=== PATIENT | male | born 1945 | race Caucasian/White ===

== ENCOUNTER 2019-02-17 10:09 | Inpatient (IN) ==
[2019-02-17] MEDS ORDERED: ASPIRIN PO ONE (10:15)
[2019-02-17 10:38] LABS: OCCULT BLOOD 1 POSITIVE (NEGATIVE)
[2019-02-17 11:20] LABS: BASO# 0.04 X1000 (0.0-0.2); BASO% 0.4 % (0.0-0.8); EOS# 0.12 X1000 (0.0-0.7); EOS% 1.2 % (0.0-10.0); HEMATOCRIT 18.2 % (42.0-52.0); IMM GRAN# 0.01 X1000 (0.0-0.04); IMM GRAN% 0.1 % (0.0-0.5); LYMPH# 3.95 X1000 (1.2-3.4); LYMPH% 38.2 % (20.5-51.1); MCH 17.1 PG (27-31); MCHC 26.9 g/dL (33-37); MCV 63.6 FL (81-99); MONO% 7.7 % (1.7-9.3); MPV 8.4 FL (7.4-10.4); NEUT# 5.43 X1000 (1.4-6.5); NEUT% 52.4 % (42.2-75.2); PLT 499 X1000 (130-400); RBC 2.86 XMIL (4.7-6.1); WBC 10.35 X1000 (4.8-10.8)
[2019-02-17 11:22] LABS: HEMOGLOBIN 4.9 g/dL (14.0-18.0)
--- NOTE | 2019-02-17 11:22 | EKG Report ---
Test Performed on : 02/17/2019 10:14:32 AM Test Reason : cp Blood Pressure : / mmHG Vent. Rate : 101 BPM Atrial Rate : 101 BPM P-R Int : 150 ms QRS Dur : 092 ms QT Int : 360 ms P-R-T Axes : 077 059 070 degrees QTc Int : 466 ms Sinus tachycardia. Left ventricular hypertrophy with repolarization abnormality Cannot rule out Septal infarct (cited on or before 07-MAR-2018) Abnormal ECG When compared with ECG of 08-MAR-2018 01:45, Vent. rate has increased BY [address] now depressed in Lateral leads T wave inversion now evident in Lateral leads Confirmed by Emily EM, Connor ([id number]), international editorial producer Charleen Gabriel ([id number]) on 02/22/2019 1:54:53 PM
--- NOTE | 2019-02-17 11:30 | Diag Imaging Result Doc PS360 ---
EXAM: CHEST-2 VIEWS HISTORY: cp TECHNIQUE: Chest two views COMPARISON: 03/07/2018 FINDINGS: The lungs are hyperexpanded. The heart is not enlarged. The vessels are small there are no infiltrates. No pleural effusions. IMPRESSION: Emphysema2) Electronically signed by Juan Bhandari 02/17/2019 11:28 AM
[2019-02-17] MEDS ORDERED: ZOFRAN IV PRN (11:38)
[2019-02-17] MEDS ORDERED: DIOVAN PO SCH (11:38)
[2019-02-17] MEDS ORDERED: PROTONIX 80 MG in NS 80 ML IV ONE (11:38)
[2019-02-17 11:41] LABS: AGAP 13; ALBUMIN 4.3 g/dL (3.5-5.0); ALKALINE PHOSPHATASE 54 U/L (32-122); BUN 14 mg/dL (8-22); CALCIUM 8.6 mg/dL (8.8-10.2); CHLORIDE 105 mmol/L (98-107); CK PROFILE 51 U/L (24-204); COSMO 278; CREATININE 0.8 mg/dL (0.7-1.2); ESTIMATED GFR > 60; GLUCOSE 105 mg/dL (70-104); GOT 22 U/L (10-34); GPT 9 U/L (10-44); POTASSIUM 3.8 mmol/L (3.5-5.1); SODIUM 139 mmol/L (136-145); TCO2 21 mmol/L (25-35); TOTAL PROTEIN 7.3 g/dL (6.3-8.3)
[2019-02-17 11:50] LABS: INR 1.23; PROTIME 16.1 Seconds (11.0-16.0)
[2019-02-17 11:51] LABS: PTT 36.4 Seconds (22.3-41.8)
[2019-02-17] MEDS: NS 1,000 ML IV SCH (11:55)
[2019-02-17] MEDS ORDERED: PROTONIX 80 MG in NS 80 ML IV SCH (12:00)
--- NOTE | 2019-02-17 12:12 | PROVIDER DOCUMENTATION ---
This chart was entered by Naima Mejia Scribe, acting as scribe for Connor Diaz MD. HPI-Cardiac General - General Chief Complaint: Palpitations Stated Complaint: HEART SKIPPING/HEART PT Time Seen by Provider: 02/17/19 10:20 Source: patient Allergies/Adverse Reactions: Patient Allergies Allergy/AdvReac Type Severity Reaction Status Date / Time Penicillins Allergy Intermediate SWELLING Verified 02/17/19 10:17 Home Medications: Home Medication List Medication Instructions Recorded Confirmed Last Taken Type Albuterol 2.5MG/Ipratrop 0.5MG 3 ml INH [id number] 03/28/13 03/07/18 03/31/13 21:20 History [Duoneb (A & A)] Simvastatin 40 mg PO QHS 03/28/13 03/07/18 03/06/18 History Acetaminophen with Codeine 1 each PO Q6H PRN PRN #20 tablet 01/13/16 03/07/18 03/07/18 06:00 Rx [Tylenol with Codeine #3 Tablet] Ranitidine HCl [Zantac] 150 mg PO DAILY 03/07/18 03/07/18 Unknown History Diltiazem C.d. [Cardizem Cd] 120 mg PO DAILY #30 capsule 03/08/18 Unknown Rx Rivaroxaban [Xarelto] 20 mg PO WSUPPER #30 tablet 03/08/18 Unknown Rx Valsartan [Diovan] 320 mg PO DAILY #30 tablet 03/08/18 Unknown Rx - History of Present Illness-Cardiac Nature of Presenting Problem: 74 y/o male presents to ED with worsening lightheadedness, weakness, palpitations, headache, SOB, and extremity pain onset 3 days ago. Pt reports he is on Xarelto. Pt denies chest pain. Pt is alert and oriented. Quality of Pain: reports: aching Severity in ED: mild Onset/Duration: 3 days ago Timing: still present, getting worse Context/Activities at Onset: reports: none Modifying Factors: improves with: nothing Palpitation Quality: missing beats History of arrythmia: reports: A-Fib Recent use of:: reports: no stimulants Nitro Today/Relief: reports: no nitro taken today Aspirin Treatment Today: reports: 325 mg x 1, provided by ED Prior Chest Pain/Cardiac Workup: reports: no prior chest pain, no prior cardiac workup (only for a-fib) Associated Symptoms: reports: headache, shortness of breath, weakness Similar Symptoms Previously?: No Recently Seen Here or By Another Healthcare Provider: No Review of Systems - Adult - REVIEW OF SYSTEMS - ADULT Constitutional: denies: chills, fever Eyes: reports: no symptoms reported Ears, Nose, Mouth & Throat: reports: no symptoms reported Cardiovascular: reports: palpitations. denies: chest pain Respiratory: reports: shortness of breath. denies: cough Gastrointestinal: denies: abdominal pain, diarrhea, nausea, vomiting Genitourinary: reports: no symptoms reported Musculoskeletal: reports: other (extremity pain). denies: back pain, joint pain Integumentary: reports: no symptoms reported Neurological: reports: headache/migraines, other (lightheaded, weakness). denies: dizziness/vertigo, seizure Psychiatric: reports: no symptoms reported Endocrine: reports: no symptoms reported Hematologic/Lymphatic: reports: no symptoms reported Allergic/Immunologic: reports: no symptoms reported All Other Systems: Reviewed and Negative Past History - Adult - PAST MEDICAL HISTORY-ADULT Review of Records: reports: Old Records Reviewed, Nursing Assessment Review, Med ications Reviewed Major Childhood Illnesses: reports: denies history Cardiovascular: reports: A-Fib, HTN, hyperlipidemia Respiratory: reports: COPD Gastrointestinal: reports: denies history Obstetrical/Gynecological: reports: denies history Genitourinary: reports: denies history Musculoskeletal: reports: denies history Neurological: reports: denies history Endocrine/Immune: reports: denies history Other Conditions: reports: denies history - PRIOR SURGERIES/PROCEDURES Surgical/Procedure History: reports: bowel surgery (colon resection), back/neck, other (leg vein) - IMMUNIZATION STATUS Childhood Immunizations: See Nurse Assessment Flu Vaccine: See Nurse Assessment - FAMILY HISTORY Family History: reviewed, not pertinent - SOCIAL HISTORY Smoking: quit greater than 1 year Substance Use: none/never Alcohol Use Frequency: never Living Situation: family Physical Exam-General - PHYSICAL EXAM-ADULT Initial Vital Signs Reviewed: Yes - CONSTITUTIONAL General Appearance: appears well, alert, no apparent distress - EYES Eyes: PERRL/EOMI, pale conjunctivae - HEAD, EARS, NOSE, MOUTH & THROAT HENMT: normocephalic/atraumatic, moist mucous membranes, normal ENT inspection - NECK Neck: non-tender, full range of motion - RESPIRATORY Respiratory: chest non-tender, normal breath sounds, rhonchi - CARDIOVASCULAR Cardiovascular: normal peripheral pulses, regular rate, rhythm - GASTROINTESTINAL (ABDOMEN) Abdominal Exam: normal bowel sounds, non tender, soft - GENITOURINARY Rectal Exam: normal exam, normal rectal tone Hemoccult Exam: heme positive stool - MUSCULOSKELETAL Back Exam: normal inspection, no CVA tenderness Extremity: normal range of motion, non-tender, normal gait - SKIN Integumentary: warm/dry, pallor - NEUROLOGIC Neurologic: purchasing specialist II-XII nml as tested, grossly normal, no motor/sensory deficits - PSYCHIATRIC Psych/Mental Status: normal mood/affect, normal thought content, normal thought process - HEART Score HEART Score: History: Slightly Suspicious HEART Score: ECG: Non-Specific Repolarization Disturbance/LBBB/PM HEART Score: Age: > or = 65 Years HEART Score: Risk Factors for Atherosclerotic Disease: 1 or 2 Risk Factors HEART Score: Troponin: < or = Normal Limit Total HEART Score:: 4 Progress - PLAN OF CARE/RESULTS Progress/Plan/Lab Results: Vital Signs - 8 hr 02/17/19 10:11 02/17/19 11:31 Temperature 97.3 F L Pulse Rate 110 H 72 Respiratory Rate 20 18 Blood Pressure 187/78 166/82 O2 Sat by Pulse Oximetry 95 98 Laboratory Results - last 24 hr 02/17/19 02/17/19 10:34 10:40 WBC 10.35 RBC 2.86 L Hgb 4.9 L* Hct 18.2 L MCV 63.6 L MCH 17.1 L MCHC 26.9 L RDW Std Deviation 19.0 H Plt Count 499 H MPV 8.4 Immature Gran % (Auto) 0.1 Neut % (Auto) 52.4 Lymph % (Auto) 38.2 [place] % (Auto) 7.7 Eos % (Auto) 1.2 Baso % (Auto) 0.4 Immature Gran # (Auto) 0.01 Neut # (Auto) 5.43 Lymph # (Auto) 3.95 H [place] # (Auto) 0.80 H Eos # (Auto) 0.12 Baso # (Auto) 0.04 Stool Occult Blood POSITIVE A Orders Category Date Time Status Admit - [facility] Routine AdmDCTranf 02/17/19 11:38 Active Cardiac Monitoring DIRECTED Care 02/17/19 10:15 Active Oxygen Therapy- ED Nursing DIRECTED Care 02/17/19 10:15 Active Saline Loc NOW Care 02/17/19 10:15 Active Transfuse .Give-Transfuse Care 02/17/19 11:21 Active Physician/Provider Consults Routine Cons 02/17/19 11:38 Ordered CHEST-2 VIEWS [RAD] Stat Exams 02/17/19 10:15 Completed CBC WITH ELECTRONIC DIFF [HEME] Stat Lab 02/17/19 10:40 Completed CK PROFILE [SP CHEM] Stat Lab 02/17/19 10:40 Received COMPREHENSIVE METABOLIC PANEL [CHEM] Stat Lab 02/17/19 10:40 Received OCCULT BLOOD SCREEN STOOL PL Stat Lab 02/17/19 10:34 Completed PRBC [LRPC (RED CELLS)] [BBK] Stat Lab 02/17/19 10:40 Received PRO B-NATRIURETIC PEPTIDE Stat Lab 02/17/19 10:40 Received PROTIME WITH INR [COAG] Stat Lab 02/17/19 10:40 Received PTT [COAG] Stat Lab 02/17/19 10:40 Received TROPONIN T Stat Lab 02/17/19 10:40 Received TSH Stat Lab 02/17/19 10:40 Received TYPE & SCREEN [BBK] Stat Lab 02/17/19 10:40 Received 0.9% Sodium Chloride Inj [Ns] 1,000 ml Med 02/17/19 11:38 Ordered IV 75 mls/hr 0.9% Sodium Chloride Inj [Ns] 80 ml Med 02/17/19 11:38 Ordered Pantoprazole [Protonix] 80 mg IV 10 mls/hr Aspirin Med 02/17/19 10:15 Discontinued 325 mg PO NOW ONE Diltiazem C.d. [Cardizem Cd] Med 02/18/19 09:00 Ordered 120 mg PO DAILY Ondansetron [Zofran] Med 02/17/19 11:38 Ordered 4 mg IV Q4H PRN PRN Pantoprazole [Protonix] 80 mg Med 02/17/19 11:38 Active 0.9% Sodium Chloride Inj [Ns] 80 ml IV NOW Valsartan [Diovan] Med 02/17/19 11:38 Ordered 320 mg PO DAILY CP/SOB/Palp >45 yrs of Age Stat Oth 02/17/19 10:15 Ordered EKG [EKG] Stat Ther 02/17/19 10:15 Draft Transfer/Admit Order [TRANSFER] Routine Transfer 02/17/19 11:29 Ordered Result Diagrams: 02/17/19 10:40 - EKG 1 Time of EKG reading by physician:: 10:14 EKG Read and Signed by:: Connor Diaz EKG Interpretation (*Must complete 3 of following elements*): Abnormal Rate: 101 Rhythm: Sinus tach [place]: normal QRS: LVH (with repolarization abnormality), other (cannot rule out septal infarct) HI Interval: normal ST Wave: normal - XRAY 1 XRAY Study: Chest Impression: Abnormal (FINDINGS: The lungs are hyperexpanded. The heart is not enlarged. The vessels are small there are no infiltrates. No pleural effusions. IMPRESSION: Emphysema2) Electronically signed by Juan Bhandari 02/17/2019 11:28 AM) - CONSULTS/PCP/HOSPITALIST Notification #1 *Consult/PCP/Hospitalist*: Dr. Rivera Time Discussed: 11:29 Reason/Comments: GI Bleed Consult Disposition: Admit (to [facility]) Departure - Departure Date of Disposition Decision: 02/17/19 Time of Disposition Decision: 11:40 DIAGNOSIS: GI bleed Qualifiers: GI bleed type/associated pathology: unspecified gastrointestinal hemorrhage type Qualified Code(s): K92.2 - Gastrointestinal hemorrhage, unspecified Afib Qualifiers: Atrial fibrillation type: unspecified Qualified Code(s): I48.91 - Unspecified atrial fibrillation HTN (hypertension) Qualifiers: Hypertension type: unspecified Qualified Code(s): I10 - Essential (primary) hypertension COPD (chronic obstructive pulmonary disease) Qualifiers: COPD type: unspecified COPD Qualified Code(s): J44.9 - Chronic obstructive pulmonary disease, unspecified Disposition: ADMITTED INPATIENT 09 Certified Medical Emergency: Emergent Condition: Stable Additional Freetext Instructions: ED Follow Up Instructions: You have been treated by a care provider in the Emergency Department. These instructions are being provided to you so you can have an understanding of how to care for yourself upon discharge. Upon discharge from the Emergency De partment, you are responsible for making arrangements for follow-up care by a physician of your choice. Take all prescribed medications as directed. Return to the Emergency Department immediately for any new or worsening symptoms. You may call the Physician Referral phone number at [phone] to obtain a list of Physicians who are taking new patients. Referrals and Follow-Ups: Connor Diaz MD [Primary Care Provider] - Discharge Education: Gastrointestinal Bleeding, [id number], Hypertension, [place]-Paym, Chronic Obstructive Pulmonary Disease, [id number], Atrial Fibrillation, [id number] - Critical Care Note This patient required my direct & personal management of CC.: No Attestation - Physician/ MARIANA Attestation Patient care was provided by Advanced Practice Provider:: No The physician spent face to face time with patient:: Yes Advanced Practice Provider documentation review:: Supervising physician onsite and consulted in the evaluation and care of this patient. The physician did have a face to face encounter with the patient. This chart was documented by the indicated scribe, (Naima Mejia Scribe) and accurately reflects the services I performed and decisions made by me, Connor Diaz MD, as attested by the provider's signature.
--- NOTE | 2019-02-17 12:25 | HISTORY AND PHYSICAL ---
PRIMARY CARE PHYSICIAN: Dr. Connor Diaz. CHIEF COMPLAINT: Generalized weakness, fatigue, lightheadedness, short of breath, and some bright red rectal bleeding over the last 3 days that had progressively worsened. HISTORY OF PRESENTING ILLNESS: This is a 74-year-old male who presents to [facility] ER with complaints of feeling lightheaded, weak, short of breath, fatigued, no energy, pale in color. Noted some bright red bleeding rectally over the past 3 days that had progressively worsened. Has a history of atrial fibrillation and is on Xarelto. His workup showed a hemoglobin of 4.9, hematocrit of 18.2. Stool for occult blood was positive. His blood pressure is actually elevated though at 187/78. He is saturating 95% on room air, so he will be admitted to the [facility] with GI consultation for further evaluation and treatment. PAST MEDICAL HISTORY: Atrial fibrillation, hypertension, hyperlipidemia, COPD. PAST SURGICAL HISTORY: Colon resection, back and neck surgery, and a leg vein removal. FAMILY HISTORY: Reviewed and noncontributory. SOCIAL HISTORY: Currently lives with his family. Denies any tobacco, alcohol, or illicit drug use. ALLERGIES: Penicillin. HOME MEDICATIONS: Will be held at this time, but we do need to verify and update home medications. I will place an order for nursing to update and confirm home medications, but certainly we will be holding his Xarelto for sure at this time. IMAGING AND LABORATORY DATA: Laboratory data showed a white blood cell count of 10.35, hemoglobin 4.9, hematocrit 18.2, platelets 499,000. Sodium 139, potassium 3.8, chloride 105, CO2 of 21, BUN 14, creatinine 0.8, glucose 105. Cardiac enzyme was negative. Stool for occult blood was positive. Chest x-ray showed emphysema. EKG showed sinus tachycardia at 101. REVIEW OF SYSTEMS: He denied any fever, chills, blurred vision. He has had some lightheadedness, generalized weakness, headache, shortness of breath, some palpitations, but denied chest pain, some bright red rectal bleeding, and denied any burning or hurting with urination. PHYSICAL EXAMINATION: VITAL SIGNS: On arrival, he had a temperature of 97.3 degrees, pulse 110, respirations 20, blood pressure 187/78, saturating 95% on room air. GENERAL: This is a 74-year-old male who is lying in the bed, answers questions appropriately. HEENT: The patient is noted to be pale in color. Otherwise, atraumatic. Normal ENT inspection. Oropharynx and nares are clear. Eyes: Pupils are equal, round, reactive to light and accommodation. Extraocular movements are intact. NECK: Normal inspection. Normal range of motion. LUNGS: Clear to auscultation bilaterally with equal lung expansion and chest wall movement. HEART: Regular rate and rhythm. No murmurs, rubs, or gallops. ABDOMEN: Soft. There is some mild tenderness to the epigastric area to palpation, but bowel sounds are present x4 quadrants. MUSCULOSKELETAL: He has 5/5 strength x4 extremities. NEUROLOGICAL: Cranial nerves II through XII appear grossly intact. ASSESSMENT: 1. Gastrointestinal bleed. 2. Symptomatic anemia. 3. Hypertension. 4. Atrial fibrillation, history of. PLAN: He will be transferred to the [facility], placed on telemetry, O2 per protocol. Will transfuse 3 units of packed red blood cells today. Will consult GI. Place him on a Protonix drip. Recheck CBC, BMP in the a.m. Place him on normal saline at 75 mL an hour, Zofran 4 mg IV every 4 hours p.r.n., and will hold him n.p.o. at this time until seen by the financial operations consultant. We need to update and confirm home medications per nursing, but again will be holding his Xarelto at this time nonetheless. Dictated by OXANA Carpio for Jose Wayne MD Addendum: Patient seen and examined by myself. Agree with OXANA note. It reflects my assessment and plan. Patient is being admitted to hospital for GI bleeding. Will transfer to [facility] and will consult GI. Will transfuse 3 units of PRBC and will check HH every 6 hours for the next 24 hours and will go from there. cc: OXANA Carpio MD Michael Putman, MD [facility]
[2019-02-17] MEDS ORDERED: TYLENOL WITH CODEINE #3 PO ONE (13:21)
[2019-02-17] MEDS: TYLENOL PO PRN (22:03)
[2019-02-17 22:37] LABS: HEMATOCRIT 23.2 % (42.0-52.0); HEMOGLOBIN 6.9 g/dL (14.0-18.0)
[2019-02-18] MEDS: PROTONIX 80 MG in NS 80 ML IV SCH ×3 (01:08→21:20)
[2019-02-18] MEDS: NS 1,000 ML IV SCH ×2 (01:10→16:44)
[2019-02-18] MEDS: TYLENOL PO PRN ×3 (05:26→22:10)
[2019-02-18 07:16] LABS: HEMATOCRIT 23.7 % (42.0-52.0); MCH 20.5 PG (27-31); MCHC 29.5 g/dL (33-37); MCV 69.5 FL (81-99); MPV 8.3 FL (7.4-10.4); RBC 3.41 XMIL (4.7-6.1); RDW 22.2 % (11.5-14.5); WBC 9.26 X1000 (4.8-10.8)
[2019-02-18 07:56] LABS: AGAP 6; BUN 9 mg/dL (8-22); CALCIUM 8.6 mg/dL (8.8-10.2); CHLORIDE 108 mmol/L (98-107); COSMO 276; ESTIMATED GFR > 60; GLUCOSE 98 mg/dL (70-104); SODIUM 139 mmol/L (136-145); TCO2 25 mmol/L (25-35)
[2019-02-18 08:17] LABS: POTASSIUM 4.9 mmol/L (3.5-5.1)
[2019-02-18] MEDS ORDERED: CARDIZEM CD PO SCH (09:00)
[2019-02-18] MEDS ORDERED: NS 500 ML IV SCH (11:00)
--- NOTE | 2019-02-18 11:47 | GASTROENTEROLOGY CONSULTATION ---
DATE: 02/18/2019 ATTENDING PHYSICIAN: Dr. Neumann. PRIMARY CARE DOCTOR: Dr. Neumann. ADMITTING DOCTOR: Dr. Rivera. REASON FOR CONSULTATION: Gastrointestinal bleed. HISTORY OF PRESENT ILLNESS: Mr. Parrish is a 74-year-old male who was admitted on 02/17/2019 to [facility] for symptoms of fatigue, lightheadedness, generalized weakness, shortness of breath, and some bright red and maroon blood in the stools for the last 3 days. According to the patient, he has history of atrial fibrillation. He is on Xarelto. He noted worsening of rectal bleeding for the last 3 days and decided to come to the hospital. On admission, his hemoglobin and hematocrit was 4.9 and 18.2. He was given 2 units of blood transfusion. He was then transferred to [facility] for GI consultation. Since being in [facility], the patient denies any rectal bleeding. He denies any nausea, vomiting, vomiting blood. He denies any nosebleeds, or gum bleeding, or blood in the urine. PAST MEDICAL HISTORY: 1. Atrial fibrillation on Xarelto. 2. Hypertension. 3. Hyperlipidemia. 4. COPD. 5. Anemia. PAST SURGICAL HISTORY: 1. Colon resection was done many years ago. He said 12 inches was removed. 2. Back surgery. 3. Neck surgery. 4. Leg vein removal. FAMILY HISTORY: Noncontributory. SOCIAL HISTORY: He lives with family. He is an ex smoker. He quit smoking 2 years ago. Denies any history of illicit drug abuse. ALLERGIES: Penicillin. MEDICATIONS IN THE HOSPITAL: Include 1. Carafate 1 g every 6 hours. 2. Normal saline at 30 mL/hour. 3. Tylenol. 4. Cardizem. 5. Normal saline 75 mL/hour. 6. Zofran 4 mg IV every 4 hours. 7. Protonix drip. 8. Diovan 320 mg every day. REVIEW OF SYSTEMS: The patient is currently NPO. Denies any fevers, rigors, chills, chest pain, shortness of breath. He was short of breath at admission but has improved after blood transfusion. He does complain of feeling fatigue and tired which is improving after transfusion. He denies abdominal pain. Denies any nausea, vomiting, vomiting blood. He has been noticing blood in the stools, but since being in the hospital, he has not noted any more bleeding. He does have history of arthritis. PHYSICAL EXAMINATION: Vital Signs: Temperature of 98.1 degrees, pulse of 65, respiratory rate 16, blood pressure 134/68, saturating 100% on nasal cannula. Body weight of 162 pounds, BMI 22 kg. General: Moderately built, moderately nourished, lying in bed, in no acute distress. HEENT: Pale conjunctivae. No icterus. Pupils equal and reactive to light. Neck: Supple. Abdomen: Soft, nontender, nondistended. No guarding or rebound. Extremities: No cyanosis, clubbing. Neurologic: Alert, awake, oriented x3. LABORATORY DATA: Hemoglobin and hematocrit are 7 and 23.7, white count 9.26, platelet count of 360,000. Sodium 139, potassium 4.9, chloride 108, bicarb 29, BUN of 9, creatinine 1, glucose of 98, calcium is 8.6. AST 22, ALT 9, total protein is 7.3, albumin of 4.3. TSH 2.39. Stool occult was positive. Chest x-ray showed the lungs are hyperexpanded. The heart is not enlarged. No infiltrates, no pleural effusions. His last myocardial perfusion scan was done on 03/07/2018 which showed EF of 76%. IMPRESSION AND PLAN: 1. Rectal bleeding leading to symptomatic anemia requiring blood transfusion. 2. Atrial fibrillation on Xarelto which has been held. 3. Hypertension. 4. Ex-smoker. 5. Chronic obstructive pulmonary disease. RECOMMENDATIONS: We will continue the patient on Protonix drip for now. We will continue on Carafate 1 g 6 hours. We will start him on clear liquid diet. We will schedule him for EGD tomorrow under anesthesia with Dr. Fisher. If the esophagogastroduodenoscopy is negative, he may eventually need a colonoscopy. The patient has history of colon resection many years ago, so he eventually will need a colonoscopy either inpatient or outpatient depending on the findings of EGD. Above plan discussed with the patient and all questions answered. Please call us with any further questions. Thank you for allowing us to participate in care of this patient. cc: MD Connor Rinaldi MD [facility]
[2019-02-18] MEDS: CARAFATE LIQUID PO SCH ×2 (13:42→21:20)
[2019-02-18] MEDS: CELEXA PO SCH (13:42)
[2019-02-18] MEDS: CARDIZEM CD PO SCH (13:42)
[2019-02-19] MEDS: CARAFATE LIQUID PO SCH ×4 (05:44→21:33)
[2019-02-19 05:46] LABS: HEMATOCRIT 26.3 % (42.0-52.0); HEMOGLOBIN 7.8 g/dL (14.0-18.0); MCH 21.3 PG (27-31); MCHC 29.7 g/dL (33-37); MCV 71.9 FL (81-99); RBC 3.66 XMIL (4.7-6.1); RDW 23.4 % (11.5-14.5); WBC 9.22 X1000 (4.8-10.8)
[2019-02-19] MEDS: NS 1,000 ML IV SCH ×2 (06:19→22:10)
[2019-02-19] MEDS: PROTONIX 80 MG in NS 80 ML IV SCH ×2 (06:19→17:53)
[2019-02-19] MEDS ORDERED: DIPRIVAN 1% ONE (06:27)
[2019-02-19 06:29] LABS: AGAP 9; BUN 5 mg/dL (8-22); CHLORIDE 106 mmol/L (98-107); COSMO 276; CREATININE 0.8 mg/dL (0.7-1.2); ESTIMATED GFR > 60; GLUCOSE 95 mg/dL (70-104); POTASSIUM 3.9 mmol/L (3.5-5.1); SODIUM 140 mmol/L (136-145); TCO2 25 mmol/L (25-35)
[2019-02-19] MEDS ORDERED: CARDIZEM CD PO SCH (09:00)
--- NOTE | 2019-02-19 11:40 | PROGRESS NOTE ---
DATE: 02/19/2019 SUBJECTIVE: This morning, Mr. Parrish refers to be doing fairly okay. He said he has not had any more black stools. He just underwent the EGD. He was told that there was nothing to explain the bleed. I reviewed the chart. We are still pending the official report but it appears that there was a mild duodenitis in the bulb. Otherwise, it was fairly unremarkable. There is a plan for colonoscopy tomorrow. OBJECTIVELY: Vital Signs: Blood pressure is 115/70, pulse of 57, respiration is 18, temperature is 98 degrees. General: Mr. Parrish is a 74-year-old gentleman. He is in bed. No distress. HEENT: Mucosa is pink and moist. Anicteric. Acyanotic. Neck: Supple. Chest: Good air entry bilateral. No crepitations. No rhonchi. Cardiovascular: Regular rate and rhythm. Abdomen: Soft. There is an old infraumbilical surgical scar. Extremities: No pedal edema. Central nervous system: Patient is awake, alert, oriented. LABORATORY DATA: Has been reviewed. WBC is 9.2, hemoglobin is up to 7.8, platelet count of 294,000. Chemistry is completely normal. ASSESSMENT: 1. Symptomatic anemia. The patient is status post 3 PRBC transfusion. Hemoglobin and hematocrit is a lot better today. 2. Gastrointestinal bleed with unremarkable esophagogastroduodenoscopy. There is a plan for a colonoscopy. 3. History of atrial fibrillation, currently rate controlled. 4. Hypertension is controlled. 5. History of previous colon resection due to tubular adenoma and diverticulosis noted. 6. Duodenitis. We are going to continue with the PPI. PLAN: In general, I think Mr. Parrish is fairly stable. We are going to continue with the PPI. Carafate has also been added. We will still keep him n.p.o. for the colonoscopy tomorrow. Will be pending further recommendations from GI. cc: Jaxson Edge MD
[2019-02-19] MEDS: CARDIZEM CD PO SCH (12:33)
[2019-02-19] MEDS: BENICAR PO SCH (12:33)
[2019-02-19] MEDS: CELEXA PO SCH (12:33)
--- NOTE | 2019-02-19 13:57 | OPERATIVE NOTE ---
PROCEDURE DATE: 02/19/2019 PROCEDURE: Upper gastrointestinal endoscopy. SURGEON: Connor Fisher MD INDICATIONS: GI bleed, anemia, melena. MEDICATIONS: Monitored anesthesia care. DESCRIPTION OF PROCEDURE: Prior to procedure, history and physical were performed. The patient's medication and allergies reviewed. The patient's tolerance to previous anesthesia was also reviewed. The risks and benefits of procedure and the sedation options and risks were discussed with the patient. All questions were answered. Informed consent was obtained. After reviewing the risks and benefits, the patient was deemed in satisfactory condition to undergo the procedure. The endoscope was passed under direct visualization. Throughout the procedure, patient's blood pressure, pulse and oxygen saturation were monitored continuously. The endoscope was introduced through the mouth and advanced to the second part of the duodenum. The upper GI endoscopy was accomplished without difficulty. The patient tolerated the procedure well. COMPLICATIONS: No immediate complications. ESTIMATED BLOOD LOSS: Minimal. FINDINGS: Normal esophagus. Z-line regular at 40 cm from the incisors. Normal stomach. There was mild duodenitis in the duodenal bulb. Second portion of duodenum was normal. No etiology of patient's anemia or GI bleeding was found on upper GI endoscopy. IMPRESSION: Mild duodenitis in the duodenal bulb. RECOMMENDATIONS: Clear liquid diet. Prep the patient with 4 L GoLYTELY this evening. NPO after midnight. Diagnostic colonoscopy tomorrow. We will follow with you. Please call with any questions or concerns.
[2019-02-19] MEDS ORDERED: GOLYTELY PO ONE (18:00)
[2019-02-19] MEDS: TYLENOL PO PRN (21:33)
[2019-02-20] MEDS: CARAFATE LIQUID PO SCH ×2 (04:32→10:12)
[2019-02-20 06:17] LABS: HEMATOCRIT 27.5 % (42.0-52.0); HEMOGLOBIN 8.2 g/dL (14.0-18.0); MCH 21.5 PG (27-31); MCHC 29.8 g/dL (33-37); MPV 8.6 FL (7.4-10.4); RBC 3.82 XMIL (4.7-6.1); RDW 24.7 % (11.5-14.5); WBC 8.17 X1000 (4.8-10.8)
[2019-02-20] MEDS: PROTONIX 80 MG in NS 80 ML IV SCH ×2 (06:41)
[2019-02-20 06:56] LABS: AGAP 9; BUN 4 mg/dL (8-22); CALCIUM 8.2 mg/dL (8.8-10.2); CHLORIDE 104 mmol/L (98-107); COSMO 274; CREATININE 0.9 mg/dL (0.7-1.2); ESTIMATED GFR > 60; GLUCOSE 93 mg/dL (70-104); POTASSIUM 3.6 mmol/L (3.5-5.1); SODIUM 139 mmol/L (136-145); TCO2 26 mmol/L (25-35)
[2019-02-20] MEDS ORDERED: DIPRIVAN 1% ONE (09:08)
[2019-02-20] MEDS: BENICAR PO SCH (10:11)
[2019-02-20] MEDS: CELEXA PO SCH (10:11)
[2019-02-20] MEDS: CARDIZEM CD PO SCH (10:11)
[2019-02-20 11:59] VITALS: BP 155/70
--- NOTE | 2019-02-20 12:34 | OPERATIVE NOTE ---
PROCEDURE DATE: 02/20/2019 PROCEDURE: Colonoscopy PROVIDER: Connor Fisher MD INDICATIONS: GI bleed, acute blood loss anemia. MEDICATIONS: Monitored anesthesia care. DESCRIPTION OF PROCEDURE: Prior to procedure, history and physical was performed and the patient's medication and allergies were reviewed. The patient's tolerance to previous anesthesia was also reviewed. The risks and benefits of procedure and sedation options and risks were discussed with the patient. All questions were answered. Informed consent was obtained. After reviewing the risks and benefits, the patient was deemed in satisfactory condition to undergo the procedure. The colonoscope was passed under direct visualization. Throughout the procedure, the patient's blood pressure, pulse and oxygen saturation were monitored continuously. The colonoscope was introduced in the anus and advanced to the cecum identified by the appendiceal orifice and ileocecal valve. The colonoscopy was accomplished without difficulty. The patient tolerated the procedure well. The quality of the prep was adequate. COMPLICATIONS: No immediate complications. ESTIMATED BLOOD LOSS: None. FINDINGS: There was a colocolonic end-to-side anastomosis found at 20 cm from the incisors, likely from prior sigmoidectomy. This was traversed without difficulty. There was a small 4 mm hyperplastic polyp found in the descending colon. Polypectomy was not attempted, given presentation for GI bleed. Small external and internal hemorrhoids. No etiology of the patient's blood loss anemia was found. IMPRESSION: 1. Internal and external hemorrhoids. 2. Colon polyp. 3. Postsurgical anatomy. RECOMMENDATIONS: Advance diet as tolerated. Iron replacement therapy. Repeat hemoglobin in 3 months as outpatient. Recommend outpatient capsule endoscopy to evaluate the small bowel. Okay to resume home medications. The patient is okay to be discharged from GI perspective. Follow up in GI clinic in 2 to 4 weeks upon discharge. Please call with any questions.
--- NOTE | 2019-02-20 14:59 | DISCHARGE SUMMARY ---
ADMISSION DATE: 02/17/2019 DISCHARGE DATE: 02/20/2019 DISPOSITION: Home. FOLLOW-UP: 1. Dr. Diaz. 2. Dr. Fisher. CONSULTATION DURING THIS ADMISSION: Gastroenterology was consulted. Patient was seen by Dr. Fisher. INVASIVE PROCEDURES DONE DURING THIS ADMISSION: EGD was initially done, which showed mild duodenitis in the duodenal bulb. A colonoscopy was done which showed internal and external hemorrhoids, colon polyp, and postsurgical anatomy. ADMISSION DIAGNOSES: 1. Gastrointestinal bleed. 2. Symptomatic anemia. 3. Hypertension. 4. Atrial fibrillation. DIAGNOSIS AT THE TIME OF DISCHARGE: 1. Symptomatic anemia. Patient is status post 3 PRBC transfusion Hemoglobin and hematocrit are stable. 2. Gastrointestinal bleed with unremarkable esophagogastroduodenoscopy and colonoscopy. There is a plan for outpatient video capsule endoscopy studies. 3. History of atrial fibrillation, currently rate controlled. 4. Hypertension, controlled. 5. Previous history of colon resection due to tubular adenoma and diverticulosis. 6. Mild duodenitis on esophagogastroduodenoscopy. DISCHARGE MEDICATIONS: 1. Simvastatin 40 mg p.o. at bedtime. 2. Ranitidine 150 p.o. daily. 3. Benicar 40 mg daily. 4. Diltiazem 180 p.o. daily. 5. Pantoprazole 40 mg daily. 6. Carafate 1 g p.o. q.6 h. 7. Xarelto 20 mg to be started after discussions with the automotive service consultant on outpatient base. PRESENTING COMPLAINT: Weakness, lightheadedness, and rectal bleed. HISTORY OF PRESENTING COMPLAINT: Mr. Parrish is a 74-year-old male. He is known to have COPD, hypertension, dyslipidemia, and atrial fibrillation on chronic Xarelto therapy. He came to the emergency department because of lightheadedness and some rectal bleed. Upon presentation, patient was evaluated. Initial hemoglobin was about 4.9. Hemoccult was positive. The patient was admitted for further medical care. He was initially admitted to [place], was seen in [place], and transferred to [facility] for medical care. HOSPITAL COURSE: Mr. Parrish was admitted to the medical floor, adequately hydrated, was grouped and crossmatched, was given 3 units of PRBC, and started on PPI. Gastroenterology was consulted. Patient was seen by Dr. Fisher. His anticoagulation was withheld. EGD was initially done, which only showed mild duodenitis, so colonoscopy was also done, which showed postsurgical anatomy, some diverticulosis and polyps. The patient's hemoglobin and hematocrit have been fairly stable during the hospital course, and he denies any more rectal bleed. He is cleared from a GI standpoint to be discharged. He is going to follow up with Dr. Fisher for possibly outpatient video capsule endoscopy evaluation. He will also follow up with Dr. Fisher of Gastroenterology in about a week after which a decision will be made if he can restart his anticoagulation. All the discharge instructions have been discussed with him. was also at the bedside at the time of the encounter. They both voiced understanding. COORDINATION TIME: Time spent for discharge is 37 minutes. cc: MD Connor Chao MD Michael Kelso, MD
== END 2019-02-20 14:21 | disposition home or self-care (01) | DRG 378 ==
LOC: P.ED 10:09 → 4N 13:03 → SUATTDRO 13:03
PROVIDERS: ATTEND Internal Medicine
CPT/HCPCS: 36430; 71020; 71046; 80048; 80053; 82270; 82550; 83880; 84443; 84484; 85014; 85018; 85025; 85027; 85610; 85730; 86850; 86900; 86901; 86920; 93005; 96361; 96365; 96366; 96375; 99285; A9270; C9113; J2405; J7030; J7040; P9016; S0164